=== PATIENT | female | born 2000 | race Caucasian/White ===

== ENCOUNTER 2024-01-14 08:00 | Outpatient (CLI) | payer OTHER ==
[2024-01-14 20:35] LABS: CHLAMYDIA TRACHOMATIS DNA NEGATIVE (NEGATIVE); NEISSERIA GONORRHOEAE DNA NEGATIVE (NEGATIVE); TRICHOMONAS VAGINALIS DNA NEGATIVE (NEGATIVE)
== END 2024-01-14 23:59 | disposition home or self-care (01) ==
LOC: LAB.WC 08:00
PROVIDERS: ATTEND Obstetrics & Gynecology
DX: Z11.3 Encounter for screening for infections with a predominantly sexual mode of transmission (principal)
CPT/HCPCS: 87491; 87591; 87661

== ENCOUNTER 2024-02-12 18:51 | Outpatient (CLI) | payer OTHER ==
--- NOTE | 2024-02-13 07:48 | Ultrasound Report ---
PROCEDURE: OB Biophysical Profile INDICATIONS: POOR GROWTH OUTSIDE/PRIOR DATING DATA: Last menstrual period (LMP): Unknown. LMP-based estimated date of delivery (GILDA): Unknown. First dating scan (date and location): 01/31/2024. Estimated date of delivery (GILDA) from first dating scan: 03/18/2024. The below data below was generated using the ultrasound GILDA of 03/18/2024 TECHNIQUE: Real-time scanning was performed of the fetus, with image documentation. Biophysical pro file was also obtained. Endovaginal scanning: Not performed COMPARISON: OB ultrasound 01/31/2024. FINDINGS: General: A single living intrauterine gestation is present. Presentation: Vertex Placenta: Placental position is posterior, without previa. Amniotic fluid index: 12.3 cm, normal for gestational age. Largest pocket 4.4 cm. heart rate: 133 beats per minute. Maternal cervical canal: 5.2 cm long; normal length is 2.5 cm or more. Closed Estimated gestational age from initial scan: 35 weeks 0 days Biophysical profile: Tone: 2 points. Movement: 2 points. Respiration: 2 points. Largest pocket of fluid: 2 points. Umbilical artery Doppler: 3.2, 2.4, 2.3. Preserved diastolic flow. Nuchal cord x1 is noted. IMPRESSION: 1. Sol living intrauterine at 35 weeks 0 days based on prior ultrasound. Vertex posit ion. Nuchal cord is noted. 2. Normal placenta and amniotic fluid. 3. Normal biophysical profile. Score 8 out of 8. Umbilical artery Doppler is within normal limits. Reviewed by: Omid George MD on 02/13/2024 7:47 AM PDT Approved by: Omid George MD on 02/13/2024 7:47 AM PDT Station ID: [id number]
--- NOTE | 2024-02-13 09:42 | Ultrasound Report ---
PROCEDURE: Doppler Limited INDICATIONS: POOR GROWTH TECHNIQUE: Limited Doppler ultrasound examination of umbilical artery was performed with image docume ntation. COMPARISON: None. FINDINGS: Umbilical artery S/D ratio performed at the level of placenta, abdomen and midportion measures 3.2, 2 .35, and 2.29 respectively. IMPRESSION: Normal umbilical artery S/D ratio. Reviewed by: Crispin Melendrez MD on 02/13/2024 9:40 AM PDT Approved by: Crispin Melendrez MD on 02/13/2024 9:40 AM PDT Station ID: [id number]
== END 2024-02-12 18:52 | disposition home or self-care (01) ==
LOC: DI 18:51
PROVIDERS: ATTEND Obstetrics & Gynecology
DX: O36.5930 Maternal care for other known or suspected poor fetal growth, third trimester, not applicable or unspecified (principal); Z3A.35 35 weeks gestation of pregnancy
CPT/HCPCS: 93976

== ENCOUNTER 2024-02-19 08:00 | Outpatient (CLI) | payer OTHER | END 2024-02-19 23:59 | disposition home or self-care (01) | LOC: LAB.WC 08:00 | PROVIDERS: ATTEND Nurse Practitioner | DX: Z36.85 Encounter for antenatal screening for Streptococcus B (principal) | CPT/HCPCS: 87081; 87181; 87797 ==

== ENCOUNTER 2024-03-21 10:26 | Inpatient (IN) | payer OTHER ==
[2024-03-21] MEDS ORDERED: OXYTOCIN/SODIUM CHLORIDE 500 ML IV PRN (11:14)
[2024-03-21] MEDS ORDERED: LACTATED RINGERS 1,000 ML IV PRN (11:14)
[2024-03-21] MEDS ORDERED: miSOPROStoL 200 MCG TABLET PR PRN (11:14)
[2024-03-21] MEDS ORDERED: fentaNYL 100 MCG/2 ML VIAL IVP PRN (11:14)
[2024-03-21] MEDS ORDERED: METHYLERGONOVINE 0.2 MG/ML VIAL IM PRN (11:14)
[2024-03-21] MEDS ORDERED: CARBOPROST TROMETHAMINE 250 MCG/ML VIAL IM PRN (11:14)
[2024-03-21] MEDS ORDERED: lidocaine 1% 20 ML MDV ID PRN (11:14)
[2024-03-21] MEDS ORDERED: TERBUTALINE 1 MG/ML VIAL SUBQ PRN (11:14)
[2024-03-21] MEDS ORDERED: miSOPROStoL 200 MCG TABLET BC PRN (11:14)
[2024-03-21] MEDS ORDERED: OXYTOCIN 10 UNIT/ML VIAL IM PRN (11:14)
--- NOTE | 2024-03-21 11:44 | HISTORY & PHYSICAL EXAMINATION ---
Admit History - Visit Reason Visit Reason: Contractions - : 1 Parity: 0 Premature: 0 Ectopic: 0 : 0 Care: positive: [facility], Other Risk/History: positive: None Complications This : positive: None Smoking Status: Never smoker - Mother's Labs Mother's Blood Type: positive: AB Mother's RH: positive: Positive GBS: positive: Group B Strep Positive Rubella Status: positive: Immune - Other Maternal History Other Maternal History: Perlita is a 23 yo at 40+3 weeks gestation by sure LMP and confirmed by 13- week ultrasound presented to L&D today for labor evaluation. She had been humaira at home with intermittent contractions the last few days, they intensified some this morning. Upon arrival her cervix was 3/80/-2 and vertex with intact membranes. We reviewed management options at length and patient desires to stay for admission. She is hopeful for expectant management, would like to be augmented if her cervix has not changed in the next 4 hours. She transferred to Loc[facility] within [facility] at 30 weeks gestation from [place]. has been uncomplicated. No Headache, visual changes or right upper quadrant abdominal pain. Denies urinary urgency or dysuria. No significant nausea or vomiting. ROS: All other symptoms reviewed and were negative except per HPI. LMP: 06/12/23 GILDA by LMP: 03/18/24 US: 08/07/23 c/w dates Final GILDA: 03/18/24 Tx of care from [place] at 30 weeks. Uncomplicated . baby is boy Eli. [place] in [place]. . Thrombocytosis in early after COVID, follow up normal. IUGR: - EFW on 01/30 show EFW of 1700 g, 3.2%, AC: 5%. Also had HC 1.5%, FL 1%. BPD 36%, referred to MFM - Saw MFM, EFW 46%tile. testing canceled Pre- Weight:135.6 BMI: 19.7 Blood type: AB+ Antibody: Neg CBC: PLT 417 HCT 38.6 HGB 12.8 RUB: Immune VZV: immune HBsAg: Neg HepC: Neg RPR/AB-EIA: Neg HIV: Neg PAP: normal 05/28/23 GC/CT: Negative 01/14/24 HSV: Denied in self and partner Genetic testing: AFP- Negative Covid: had disease on 09/11/23 FAS: 10/30/23 Placenta: posterior Cord:3VC RAE: normal EFW:424g 50gm OGCT: 123 3HR GTT: TDAP:12/25/23 Breast Pump: Done 3rd trimester 11/27/23 H/H 10.5/32.3 plt 384 GBS: POSITIVE RPR 01/30-Non reactive Delivery plan: Contraception: Physical exam: Normocephalic, atraumatic Lungs: no increased work of breathing Abdomen gravid, soft, nontender. EFW 3200 FHR baseline 135, moderate variability, + accelerations, no decelerations Contractions palpate moderate every 4-10 minutes with soft resting tone SVE 3/80/-2, vertex by exam, membranes intact Mild edema bilaterally to lower extremities. Mood is good. Assessment: 23 yo @ 40+3 weeks gestation by 13 wk U/S Early labor FHR 130s Cat I GBS Positive Plan: Admit to [facility] for Expectant management Will proceed with augmentation 4 hours after first dose of GBS prophylaxis. Continuous monitoring/ Intermittent heart rate auscultation. Jacuzzi PRN. Nitrous oxide PRN. Epidural PRN Maternal Request. Anticipate . Patient verbally consents to my participation in her care in my role as a student nurse petroleum supply specialist. AMBER De La Cruz, Student Nurse Muffler Mechanic (Leonela Schmid) - HPI Current EDU 03/18/24 Gestation 40 Weeks and 3 Days 1 Vital Signs Temperature 98.1 F 03/21/24 10:41 Heart Rate 81 03/21/24 10:41 Respiratory Rate 16 03/21/24 10:41 Blood Pressure 125/79 03/21/24 10:41 Temperature 97.9 F 03/21/24 16:01 Heart Rate 97 03/21/24 16:01 Respiratory Rate 16 03/21/24 16:01 Blood Pressure 137/85 H 03/21/24 16:01 O2 Saturation 100 03/21/24 16:01 If not protocol: Oxygen Flow, liters/minute Meds/Allgy - Allergies Allergies/Adverse Reactions: Allergies Allergy/AdvReac Type Severity Reaction Status Date / Time No Known Drug Allergies Allergy Verified 03/21/24 13:10 Physical - Abdominal Exam Vital Signs: Temp Pulse Resp BP Pulse Ox O2 Flow Rate 97.9 F 97 16 137/85 H 100 03/21/24 16:01 03/21/24 16:01 03/21/24 16:01 03/21/24 16:01 03/21/24 16:01 Plan for Labor - Plan For Labor I expect patient to be DC'd or transferred within 96 hours.: Yes - Plan For Labor Plan for Labor: agree with above. patient seen with Leonela. SERAFIN (Jennifer Arredondo)
[2024-03-21] MEDS ORDERED: SODIUM CHLORIDE FLUSH 0.9% 10 ML SYRINGE IVP SCH (12:00)
[2024-03-21] MEDS: AMPICILLIN 2 GM in SODIUM CHLORIDE 0.9% MINIBAG 100 ML IV ONE (13:20)
[2024-03-21 14:44] LABS: BASOPHILS % (AUTO) 0.2 %; EOSINOPHILS # (AUTO) 0.1 10^3/uL (0.0-0.7); EOSINOPHILS % (AUTO) 0.5 %; HCT - HEMATOCRIT 36.2 % (37.0-47.0); HGB - HEMOGLOBIN 11.7 g/dL (12.0-16.0); LYMPHOCYTES % (AUTO) 15.7 %; MEAN CORPUSCULAR HEMOGLOBIN 30.5 pg (27.0-31.0); MEAN CORPUSCULAR HGB CONC 32.3 g/dL (32.0-36.0); MEAN CORPUSCULAR VOLUME 94.5 fL (81.0-99.0); MEAN PLATELET VOLUME 11.3 fL (7.9-10.8); MONOCYTES # (AUTO) 1.3 10^3/uL (0.0-1.0); NEUTROPHILS # (AUTO) 9.1 10^3/uL (1.5-6.6); NEUTROPHILS % (AUTO) 73.1 %; PLT - PLATELET COUNT 397 10^3/uL (130-450); RED BLOOD COUNT 3.83 10^6/uL (4.20-5.40); RED CELL DISTRIBUTION WIDTH 13.4 % (12.0-15.0); WHITE BLOOD COUNT 12.5 x10^3/uL (4.8-10.8)
[2024-03-21] MEDS ORDERED: fentaNYL 100 MCG/2 ML VIAL ONE (17:01)
[2024-03-21] MEDS ORDERED: ROPIVACAINE 0.2% 200 MG/100 ML BAG EP ONE ×2 (17:01→23:43)
[2024-03-21] MEDS ORDERED: LIDOCAINE 2%-EPI 1:100000 20 ML MDV ONE (17:01)
[2024-03-21] MEDS: AMPICILLIN 1 GM in SODIUM CHLORIDE 0.9% MINIBAG 100 ML IV SCH (17:50)
[2024-03-21] MEDS: diphenhydrAMINE INJ 50 MG/ML VIAL IVP PRN (18:14)
--- NOTE | 2024-03-21 18:22 | ANESTHESIA ---
Pre-Anesthesia VS, & Labs - Diagnosis desires epidural, 40+3 weeks, healthy - Procedure labor epidural Vital Signs: Temp Pulse Resp BP Pulse Ox O2 Flow Rate 36.6 C 97 16 137/85 H 100 03/21/24 16:01 03/21/24 16:01 03/21/24 16:01 03/21/24 16:01 03/21/24 16:01 Height: 5 ft 9.5 in Weight (kg): 80.558 kg Body Mass Index: 25.8 BMI Classification: Overweight - NPO Last Fluid Intake: 1700 Last Food Intake: 1200 - Is Patient ?: Yes ( 40+3 weeks, healthy ) - Lab Results Current Lab Results: Laboratory Tests 03/21/24 15:35: Blood Type AB POSITIVE, Antibody Screen NEGATIVE 03/21/24 14:30: Blood Type Recheck AB POSITIVE 03/21/24 12:25: WBC 12.5 H, RBC 3.83 L, Hgb 11.7 L, Hct 36.2 L, MCV 94.5, MCH 30.5, MCHC 32.3, RDW 13.4, Plt Count 397, MPV 11.3 H, Neut # (Auto) 9.1 H, Lymph # (Auto) 2.0, [place] # (Auto) 1.3 H, Eos # (Auto) 0.1, Baso # (Auto) 0.0, Absolute Nucleated RBC 0.00, Nucleated RBC % 0.0 Lab results reviewed: Yes Fish Bones: 03/21/24 12:25 Home Medications and Allergies Active Medications Carboprost Tromethamine (Carboprost Tromethamine 250 Mcg/Ml Vial) 250 mcg IM .ONCE PRN PRN Reason: Hemorrhage Diphenhydramine HCl (Diphenhydramine Inj 50 Mg/Ml Vial) 25 mg IVP Q6H PRN PRN Reason: Allergy Symptoms Last Admin: 03/21/24 18:14 Dose: 25 mg Fentanyl (Fentanyl 100 Mcg/2 Ml Vial) 50 mcg IVP Q1H PRN PRN Reason: Severe Pain (score 7-10) Lactated Ringer's (Lr) 500 mls @ 999 mls/hr IV PRN PRN PRN Reason: distress/resuscitation Oxytocin/Sodium Chloride (Pitocin/Sodium Chloride) 500 mls @ 999 mls/hr IV PRN PRN; Protocol PRN Reason: POST- HEMORR PREVENTION Tranexamic Acid (Tranexamic 1,000 Mg/100ml-Nacl) 1,000 mg in 100 mls @ 600 mls/hr IV Q30M PRN PRN Reason: EBL >1200mL and within 3hr Ampicillin Sodium 1 gm/ Sodium (Chloride) 100 mls @ 200 mls/hr IV Q4H [facility] Last Admin: 03/21/24 17:50 Dose: 200 mls/hr Lactated Ringer's (Lr) 1,000 mls @ 125 mls/hr IV .Q8H [facility] Lidocaine HCl (Lidocaine 1% 20 Ml Mdv) 20 ml ID .ONCE PRN PRN Reason: PERINEAL REPAIR Stop: 03/24/24 11:14 Methylergonovine Maleate (Methylergonovine 0.2 Mg/Ml Vial) 0.2 mg IM .ONCE PRN PRN Reason: Hemorrhage Misoprostol (Misoprostol 200 Mcg Tablet) 600 mcg BC .ONCE PRN PRN Reason: Hemorrhage Misoprostol (Misoprostol 200 Mcg Tablet) 800 mcg AR .ONCE PRN PRN Reason: Hemorrhage Oxytocin (Oxytocin 10 Unit/Ml Vial) 10 unit IM .ONCE PRN PRN Reason: Step One if no IV access. Sodium Chloride (Sodium Chloride Flush 0.9% 10 Ml Syringe) 10 ml IVP Q8H [facility] Terbutaline Sulfate (Terbutaline 1 Mg/Ml Vial) 0.25 mg SUBQ .ONCE PRN PRN Reason: Tachystole Allergies/Adverse Reactions: Allergies Allergy/AdvReac Type Severity Reaction Status Date / Time No Known Drug Allergies Allergy Verified 03/21/24 13:10 Anes History & Medical History - Anesthetic History Anesthesia Complications: reports: No previous complications - Medical History Cardiovascular: reports: None Pulmonary: reports: Asthma (exercise induced/no meds) Gastrointestinal: reports: None Urinary: reports: None Neuro: reports: None Smoking Status: Never smoker Psychosocial: reports: No issues indicated - Obstetrical History : 1 Parity: 0 Events: reports: None Complications: reports: None Exam General: Alert, Oriented x3 Dental: WNL Mouth Openin Fingerbreadth Neck Mobility: Normal Mallampati classification: II Thyromental Distance: 4-6 cm Plan Anesthesia Type: Epidural Consent for Procedure(s) Verified and Reviewed: Yes Code Status: Attempt Resuscitation ASA classification: 2-Mild systemic disease Is this case an emergency?: No
[2024-03-21] MEDS ORDERED: diphenhydrAMINE INJ 50 MG/ML VIAL IVP PRN (18:23)
[2024-03-21] MEDS ORDERED: METOCLOPRAMIDE 10 MG/2 ML VIAL IVP PRN (18:23)
[2024-03-21] MEDS ORDERED: ONDANSETRON 4 MG/2 ML VIAL IVP PRN (18:23)
[2024-03-21] MEDS ORDERED: ePHEDrine 50 MG/ML VIAL IVP PRN (18:23)
[2024-03-21] MEDS ORDERED: NALOXONE 0.4 MG/ML VIAL IVP PRN (18:23)
[2024-03-21] MEDS: LACTATED RINGERS 1,000 ML IV SCH (18:34)
[2024-03-21] MEDS: NALBUPHINE 10 MG/ML AMP IVP PRN (18:45)
--- NOTE | 2024-03-21 19:41 | PROVIDER PROGRESS NOTE ---
<Leonela Schmid - Last Filed: 03/21/24 19:42> Labor Progress Note - Uterine Monitoring Uterine Monitoring Mode: positive: External toco Contraction Frequency (min/apart): 2.5-4 Contraction Intensity: positive: Moderate to strong Uterine Resting Tone: positive: Soft - Monitoring Monitor Mode: positive: External ultrasound Heart Rate Baseline: 125-130 Heart Rate Variability: positive: Moderate (6-25 bmp) Accelerations: positive: Present, 15x15 Decelerations: positive: None Strip Review: positive: Category I - Vaginal Exam Dilation (in cm): 6 Effacement (%): 100 Station: -1 Cervical Position: Midposition - Labor Progress Note Labor Progress Note/Additional Text: S. Contractions continue to increase in both intensity as well as frequency. Epidural Right side lying. Comfortable with epidural. Coping well, spouse supportive at beside. Understands situation after our discussions, feels well informed. O: FHR baseline 125-130, moderate variability, no accels, no significant decels. Contractions palpate moderate to strong. Soft resting tone. SVE 6/100/-1, mid position. Vertex. Membranes intact. A: 1. 23yo @ 40+3 wks gestation by LMP c/w Xwk U/S 2. FHR Category I 3. GBS positive P: 1. Reevaluate for cervical change in 2 hours. If unchanged, will recommend augmentation (AROM or oxytocin) 2. Continuous monitoring. 3. Continue GBS prophylaxis. 4. maintain epidural for pain management 5. encourage rotations in bed on peanut ball 6. Reviewed plan of care with oncall physician 7. Anticipate . AMBER De La Cruz, Student Nurse Retail Office Associate <Jennifer Arredondo - Last Filed: 03/21/24 21:26> Labor Progress Note - Labor Progress Note Labor Progress Note/Additional Text: Agree with above. plan reviewed with Leonela
[2024-03-21] MEDS: OXYTOCIN/SODIUM CHLORIDE 500 ML IV SCH (20:46)
[2024-03-21] MEDS ORDERED: SODIUM CHLORIDE 0.9% MINIBAG 100 ML IV ONE (23:40)
[2024-03-21] MEDS: ROPIVACAINE 0.2% 200 MG/100 ML BAG EP PRN (23:54)
[2024-03-22] MEDS: TRANEXAMIC ACID IN NACL 1,000 MG/100 ML BAG IV PRN (02:16)
--- NOTE | 2024-03-22 03:02 | DELIVERY NOTE ---
<Leonela Schmid - Last Filed: 03/22/24 03:02> Delivery Note - Labor Labor: positive: Spontaneous, Augmented by oxytocin - Delivery Method Delivery Method: positive: Spontaneous vaginal delivery - Presentation Presentation: positive: Vertex, URBAN - left occiput anterior - Nuchal Cord Nuchal Cord: positive: Present, Reduced - Anesthetic Anesthetic Type: - Amniotic Fluid Description Amniotic Fluid Description: positive: Light meconium - Laceration Laceration: positive: 2nd degree, Labial, Perineal - Suture Suture Type: positive: Vicryl Suture Size: positive: 3-0 - Delivery Outcome Delivery Outcome: positive: Livebirth - [place]: positive: Placed in direct skin contact with mother, Bulb syringe, Stimulated, Warmed, [place] used [place] sex: positive: Male - Cord Cord: positive: 3 vessels - Placenta Placenta: positive: Intact - Estimated Blood Loss Estimated Blood Loss (in cc): 650 - Post Delivery Events Post Delivery Events: positive: No post delivery events - Delivery Comments (Free Text/Narrative) Delivery Comments (Free Text/Narrative): This 23 -year-old, G 1 P 0 . @ 40+3 gestation by sure LMP and confirmed by 13- week ultrasound presented to [facility] 03/21/2024 @ approximately noon in early labor. Upon her arrival, her cervix was 3/80/-2 and Vertex presentation by exam. GBS negative. Her contractions began spacing out and OXYTOCIN MAXIMUM INFUSION OF 4 mu/Min was initiated to augment labor as was AROM @ 0030 (light meconium). FHR pattern demonstrated 130 baseline in a primarily category I prior to second stage. Epidural placed upon maternal request. She then progressed to complete/complete @ 0122 and active pushing began @ 0136. : Pediatrics called to be present at for meconium stained fluid. Normal spontaneous vaginal delivery of a viable female infant on 03/21/2024 @ 0207. Nuchal x 1 reduced. The was placed on maternal abdomen, stimulated, dried and placed skin to skin. Apgars 8 & 9 @ 1 & 5 minutes. The umbilical cord was allowed to stop pulsating at which time it was doubly clamped by delivering provider and cut by FOB. 3VC. Cord blood was obtained. Fundal massage and gently cord traction applied for active management of the third stage, placenta delivered spontaneously and intact @0213. EBL 650cc Placenta was WAS NOT sent to pathology. Thirty units of Pitocin were added to the IV fluid and allowed to run freely for hemostasis. Uterine massage was performed until uterus was deemed firm. Inspection of the perineum noted a second degree laceration with extension to the left vaginal sidewall. Heavy bleeding from sidewall laceration addressed with hemostatic stich to left vaginal sidewall and TXA given for increased bleeding. Repair completed in normal sterile conditions with a running suture of 3-0 Vicryl (rapide). Upon re-inspection the patient was hemostatic. Uterus again massaged and found to be firm. Needle and sponge counts were correct. Fourth stage: Uterine fundus firm and there is no excessive bleeding. The perineum, vagina and cervix were inspected and tissues found to be well approximated. Family bonding well. Both mother and baby are in stable condition. One severe range BP immediately following delivery. Several BP following 130's-140's/80's-90's. Will order lab work timed to later this morning. Perlita verbally consented to my participation in her care and delivery in my role as a student nurse distance education coordinator. AMBER De La Cruz, Student Nurse Case Packer And Sealer <Jennifer Arredondo - Last Filed: 03/22/24 21:33> Delivery Note - Delivery Comments (Free Text/Narrative) Delivery Comments (Free Text/Narrative): I was present for the entire second and third stage of labor and agree with Leonela's note as written. Blood loss was almost entirely from the left labial laceration. Little was from the uterus.
[2024-03-22] MEDS: ACETAMINOPHEN 500 MG TABLET PO SCH (05:06)
[2024-03-22] MEDS: IBUPROFEN 800 MG TABLET PO SCH (05:06)
[2024-03-22] MEDS: DOCUSATE SODIUM 100 MG CAPSULE PO SCH ×2 (08:53→23:35)
[2024-03-22 10:02] LABS: BASOPHILS % (AUTO) 0.2 %; EOSINOPHILS % (AUTO) 0.2 %; HCT - HEMATOCRIT 28.2 % (37.0-47.0); HGB - HEMOGLOBIN 9.2 g/dL (12.0-16.0); LYMPHOCYTES % (AUTO) 10.8 %; MEAN CORPUSCULAR HEMOGLOBIN 31.3 pg (27.0-31.0); MEAN CORPUSCULAR HGB CONC 32.6 g/dL (32.0-36.0); MEAN CORPUSCULAR VOLUME 95.9 fL (81.0-99.0); MONOCYTES # (AUTO) 1.1 10^3/uL (0.0-1.0); MONOCYTES % (AUTO) 5.8 %; NEUTROPHILS # (AUTO) 15.1 10^3/uL (1.5-6.6); NEUTROPHILS % (AUTO) 82.6 %; PLT - PLATELET COUNT 291 10^3/uL (130-450); RED BLOOD COUNT 2.94 10^6/uL (4.20-5.40); RED CELL DISTRIBUTION WIDTH 13.3 % (12.0-15.0); WHITE BLOOD COUNT 18.2 x10^3/uL (4.8-10.8)
[2024-03-22 10:22] LABS: ALBUMIN 2.9 g/dL (3.2-5.5); BILIRUBIN,TOTAL 0.6 mg/dL (0.2-1.0); CALCIUM 8.9 mg/dL (8.5-10.3); CREATININE 0.7 mg/dL (0.6-1.3); POTASSIUM 3.9 mmol/L (3.5-4.5); TOTAL PROTEIN 5.7 g/dL (6.4-8.9)
[2024-03-22] MEDS ORDERED: WITCH HAZEL/GLYCERIN 1 PAD TOP PRN (20:33)
[2024-03-22] MEDS ORDERED: HYDROCORTISONE 1% CREAM 28 GM TUBE TOP SCH (21:00)
--- NOTE | 2024-03-23 08:44 | Discharge Plan ---
Discharge Plan Problem Reviewed?: Yes Disposition: Home, Self Care Condition: Good Diet: Regular Shower Restrictions: No Instruction Topics: Vaginal After, Depression Additional Instructions or Follow Up instructions: Ibuprofen 600mg every 6 hours and acetaminophen 1000 mg every 6 hours as needed for pain. No Smoking: If you smoke, Please STOP! Call for help. Follow-up with: Leonela Schmid ARNP [Provider Admit Priv/Credential] -
--- NOTE | 2024-03-23 08:52 | DISCHARGE SUMMARY ---
Discharge Summary Admit Date: 03/21/24 Discharge Date: 03/23/24 Discharging Provider: Scott Mcclellan MD Code Status: Attempt Resuscitation Condition at Discharge: Good Discharge Disposition: 01 Home, Self Care - DIAGNOSES Admission Diagnoses: 40 weeks gestation Term labor GBS positive Discharge Diagnoses with Status of Each Condition: Delivery of live jackson Status post spontaneous vaginal delivery - HPI History of Present Illness: Subjective Patient reports she is doing well. Lochia appropriate. Denies heavy bleeding. Ambulating. Pelvic and abdominal pain well-controlled. Tolerating oral intake. Diet: Regular. Voiding without difficulty. Passing flatus. Denies BM. Patient is bonding with baby in room Breast feeding going well. Denies feeling lightheaded, dizzy or excessively fatigued. Objective General: Alert, oriented, no apparent distress. Lungs: No increased work of breathing. Abdomen: Uterus firm. Below umbilicus. No guarding or rebound. Extremities: No pain on palpation. No cords palpated. - HOSPITAL COURSE Hospital Course: Patient presented at 40 weeks gestation in term labor. She was 3 cm on admission and received oxytocin for augmentation and then amniotomy. She progressed quickly after that and had a spontaneous vaginal delivery without complication. course was unremarkable and was discharged on postpa rtum day 1. - ALLERGIES Allergies/Adverse Reactions: Allergies Allergy/AdvReac Type Severity Reaction Status Date / Time No Known Drug Allergies Allergy Verified 03/21/24 13:10 - MEDICATIONS Home Medications: Ambulatory Orders Medication Instructions Recorded Confirmed Home Medications Unobtainable 03/22/24 03/22/24 [HOME MEDICATIONS UNOBTAINABLE] - LABS Result Diagrams: 03/22/24 09:59 03/22/24 09:59 - FOLLOW UP Follow Up: With [facility] women's care in 1 to 2 weeks - TIME SPENT Time Spent in Discharge (Minutes): 20
[2024-03-23 10:17] VITALS: BP 133/84; O2SAT 98
--- NOTE | 2024-03-23 13:17 | Labor Flowsheet ---
Labor Flowsheet Datetime Report Generated by CPN: 03/23/2024 13:17 Datetime: 03/23/2024 09:54 VITAL SIGNS NBP Sys/Deja/Mean (mmHg): 133 : 82 : 94 Pulse: 88 Datetime: 03/22/2024 06:35 SpO2 (%): 97 Datetime: 03/22/2024 04:15 Stage of : Recovery Respirations: 18 Pain Presence: None/Denies Datetime: 03/22/2024 03:15 Temperature (C): 36.7 Temperature Route: Oral Datetime: 03/22/2024 02:45 Vital Sign Comments: notified Leonela of elevated BP. CMP and CBC ordered. will continue to monitor. Datetime: 03/22/2024 02:31 PAIN Pain Scale: 0 Datetime: 03/22/2024 02:24 Membranes Ruptured Date/Time: 03/22/2024 00:30 Datetime: 03/22/2024 02:15 LaborFlag: Labor Datetime: 03/22/2024 01:40 ASSESSMENT A Monitor Mode: Telemetry FHR Baseline Rate : 130 FHR Baseline Changes: No Baseline Change Variability: Moderate 6-25 bpm Accelerations: 15X15 Decelerations: Late Category: Category II Datetime: 03/22/2024 01:36 Communication Comments: pt pushing Datetime: 03/22/2024 01:22 VAGINAL EXAM Dilatation (cm): 10.0 Effacement (%): 100 Station: 3 Exam by: Dr. Arredondo Datetime: 03/22/2024 00:45 UTERINE ACTIVITY Monitor Mode: External Frequency (min): 1-4min Quality: Moderate Duration (sec): 50-80sec Pattern: Normal: <= 5 Contractions in 10 Minutes Resting Tone (Palpate): Non Relaxed Datetime: 03/22/2024 00:30 Pitocin Checklist: At Least 1 Acceleration of 15 bpm x 15 Seconds in 30 Minutes or Adequate Variabi lity; No More than 1 Late Deceleration Occurred in Past 30 Minutes; No More than 2 Variable Decelerat ions > 60 Seconds in Duration and decreasing >60 bpm in 30 minutes; No More than 5 Uterine Contractio ns in 10 Minutes for any 20 Minute Interval; Uterus Palpates Soft between Contractions; IUPC Resting Tone less than 25 mmHg Membrane Status: Ruptured Membranes Rupture Method: Artificial Amniotic Fluid Color: Light Meconium Amniotic Fluid Amount: Small Amniotic Fluid Odor: None PATIENT CARE Oxygen Method: Room Air Datetime: 03/21/2024 22:20 MEDICATIONS Pitocin (milliunits): Increased to @ 4ml/hr Patient Position/Activity: Semi-Fowlers Datetime: 03/21/2024 21:32 Patient Care Comments: Rt lateral with peanut ball Datetime: 03/21/2024 20:57 Comments: tracing maternal HR Datetime: 03/21/2024 18:45 Analgesics/Sedatives: Nubain (mg) @ 2.5 Datetime: 03/21/2024 18:29 I/O Interventions: [place] Cath Inserted Datetime: 03/21/2024 17:42 Epidural Procedure: Loading Dose Datetime: 03/21/2024 17:31 Anesthesia Comments: lidocain Datetime: 03/21/2024 17:17 PROCEDURE TIME OUT Procedure Verify: Correct Patient Identity; Accurate Procedure Consent Form; Agreement on Procedure to be Done ANESTHESIA Anesthesia Plans: Epidural Epidural Positioning: Sitting Datetime: 03/21/2024 16:45 COMMUNICATION Communication: Call/Page Placed to Provider Datetime: 03/21/2024 13:20 Antibiotics: Ampicillin IV 2 Gm
== END 2024-03-23 13:13 | disposition home or self-care (01) | DRG 807 ==
LOC: WFO 10:26 → FBP 10:29 → WFO 11:13 → FBP 11:14
PROVIDERS: ADMIT Obstetrics & Gynecology; ATTEND Obstetrics & Gynecology
PROC: 10907ZC Drainage of Amniotic Fluid, Therapeutic from Products of Conception, Via Natural or Artificial Opening (ICD-10-PCS; principal; 2024-03-21)
PROC: 10E0XZZ Delivery of Products of Conception, External Approach (ICD-10-PCS; 2024-03-21)
PROC: 0KQM0ZZ Repair Perineum Muscle, Open Approach (ICD-10-PCS; 2024-03-21)
DX: O99.824 Streptococcus B carrier state complicating childbirth (principal); Z37.0 Single live birth; O77.0 Labor and delivery complicated by meconium in amniotic fluid; O69.81X0 Labor and delivery complicated by cord around neck, without compression, not applicable or unspecified; O70.1 Second degree perineal laceration during delivery; Z3A.40 40 weeks gestation of pregnancy
CPT/HCPCS: 36415; 59409; 80053; 85025; 86850; 86900; 86901; 99215; A9270; J1200; J2300; J7120